=== PATIENT | male | born 2000 | race Caucasian/White ===

== ENCOUNTER 2020-01-09 23:05 | Emergency (ER) | payer OTHER, SELFPAY ==
[2020-01-09 23:04] VITALS: BP 111/62; PULSE 73; RESP 17; TEMP 37; O2SAT 97
--- NOTE | 2020-01-09 23:10 | ED.AMS ---
HPI - Altered Mental Status General Chief Complaint: Altered Mental Status Stated Complaint: poss adverse effect History of Present Illness HPI narrative: Shortly after smoking marijuana this evening he began acting strangely. He became violent with his friends. He was then witnessed running his head into the wall. He vomited once. On arrival here he is somnolent. He claims not to remember what happened. He has no complaints at this time. Review of Systems Review of Systems: All systems reviewed & are unremarkable except as noted in HPI and below Cardiovascular: Cardiovascular: Denies chest pain Respiratory: Respiratory: Denies dyspnea Gastrointestinal: Gastrointestinal: Denies abdominal pain Neurologic: Denies headache(s) [facility] Family History Family History Grandparent Family history of glaucoma Hypertension Family history of elevated blood lipids Cerebrovascular accident Family history of cardiac disorder Family history of malignant neoplasm Family history of coronary artery disease Father Family history of malignant neoplasm Social History Social History Smoking status: Never smoker Alcohol intake: never Exam Const: General: healthy appearing, no acute distress and alert Orientation/consciousness: patient oriented x3 HENMT: Other: minimal dried blood in nares Eyes: Conjunctivae: conjunctivae normal Pupils: Equal, round and reactive pupils present EOM: EOMs intact bilaterally Neck: Neck: normal visual inspection Resp: Effort & Inspection: normal respiratory effort Auscultation: clear to auscultation bilaterally Cardio: Rate: regular rate Rhythm: regular rhythm GI: GI Palp: Yes Soft to palpation and No Tenderness to palpation present (GI) Skin: General skin exam: normal color Wounds: no wounds Neuro: General: patient oriented x3, moves all extremities, no focal motor deficits and CN's II-XI intact bilaterally Cranial nerves: Yes Nystagmus not present Speech: normal speech Extrem: General: normal to inspection Course Vital Signs Vital signs: Vital Signs Temperature 37.0 C 01/09/20 23:04 Pulse Rate 73 01/09/20 23:04 Respiratory Rate 17 01/09/20 23:04 Blood Pressure 111/62 01/09/20 23:04 Pulse Oximetry 97 01/09/20 23:04 Temperature 37.0 C 01/09/20 23:04 Pulse Rate 80 01/10/20 02:04 Respiratory Rate 19 01/10/20 02:04 Blood Pressure 112/46 L 01/10/20 02:04 Pulse Oximetry 98 01/10/20 02:04 MDM - Altered Mental Status MDM Narrative Medical decision making narrative: He has returned to baseline. Likely either had a bad reaction to marijuana or it was laced with soething that does not show up on drug screen. Medical Records Attestation: I reviewed the patient's medical records. Lab Data Attestation: I reviewed the patient's lab results. Labs: Lab Results 01/09/20 Range/Units 23:55 Urine Opiates Screen Negative (Negative) Urine Methadone Screen Negative (Negative) Ur Barbiturates Screen Negative (Negative) Ur Phencyclidine Scrn Negative (Negative) Ur Amphetamine Screen Negative (Negative) U Benzodiazepines Scrn Negative (Negative) Urine Cocaine Screen Negative (Negative) U Cannabinoids Screen Positive A (Negative) Discharge Plan Discharge Clinical Impression: Adverse reaction to psychostimulant drug Qualifiers: Encounter type: initial encounter Qualified Code(s): T43.605A - Adverse effect of unspecified psychostimulants, initial encounter Patient Disposition: Home, Self-Care Condition: Stable Instructions: Adverse Drug Reaction (ED) Follow-up/Referrals: Hudson Norman MD [Primary Care Provider] - Discharge Date/Time: 01/10/20 02:00
--- NOTE | 2020-01-09 23:30 | ECG_ITS ---
Measurements Intervals [place] Rate: 69 P: 59 TN: 151 QRS: 49 QRSD: 99 T: 43 QT: 388 QTc: 416 Interpretive Statements SINUS RHYTHM VOLTAGE CRITERIA FOR LVH MINIMAL Q WAVES- INFERIOR LEADS BORDERLINE ECG Electronically Signed On 01-10-2020 7:08:52 CDT by Wilian Ward D.O.
[2020-01-10] VITALS: BP 98/54; PULSE 56; RESP 12; O2SAT 97
[2020-01-10 00:17] LABS: Amphetamine Screen Urine Negative (Negative); Barbiturate Screen Urine Negative (Negative); Benzodiazepines Screen Urine Negative (Negative); Cannabinoid Screen Urine Positive (Negative); Cocaine Screen Urine Negative (Negative); Methadone Screen Urine Negative (Negative); Opiate Screen Urine Negative (Negative); Phencyclidine Screen Urine Negative (Negative)
[2020-01-10 01:10] VITALS: BP 92/43; PULSE 55; RESP 14; O2SAT 99
[2020-01-10 02:04] VITALS: BP 112/46; PULSE 80; RESP 19; O2SAT 98
== END 2020-01-10 02:00 | disposition home or self-care (01) ==
PROVIDERS: Emergency Provider Emergency Medicine; PCP Family Medicine
DX: R41.82 Altered mental status, unspecified (principal); T43.605A Adverse effect of unspecified psychostimulants, initial encounter
CPT/HCPCS: 51702; 80307; 93005; 99283

== ENCOUNTER 2020-09-08 12:15 | Emergency (ER) | payer OTHER, SELFPAY ==
--- NOTE | ~2020-09-08 | XR_ITS ---
EXAMINATION: XR foot RT min 3V EXAM DATE: 09/08/2020 12:33 INDICATION: Initial encounter following injury, with pain of the right foot. TECHNIQUE: Right foot dorsoplantar, lateral and oblique projections obtained and reviewed. There is no prior study for comparison. FINDINGS: There is acute closed posttraumatic nondisplaced fracture through the base of the right 5t h metatarsal fracture. No displacement. There is overlying soft tissue swelling. No other suspicious findings. IMPRESSION: Right 5th metatarsal base nondisplaced avulsion fracture. Reviewed, dictated and finalized at location A.
--- NOTE | 2020-09-08 12:30 | ED.LOWEXIN ---
HPI - Extremity Injury (Lower) General Chief Complaint: Extremity Injury, Lower Stated Complaint: rt foot injury Source: patient Mode of arrival: ambulatory Limitations: no limitations History of Present Illness HPI Narrative: Patient is a 19 year old male who presents complaining of right foot pain. He reports he was running two days ago when he stepped on a bottle and heard a pop . He reports mild bruising and tenderness with ambulation. He denies other injuries. He denies significant medical history. Patient denies using over the counter medications for pain. MD complaint: foot injury Related Data Allergies Allergy/AdvReac Type Severity Reaction Status Date / Time No Known Allergies Allergy Verified 01/13/20 10:36 Review of Systems Review of Systems: Narrative: CONSTITUTIONAL: Denies fever, chills, or sweats. EYES: Denies visual changes, redness, or discharge. ENT: Denies rhinorrhea, congestion, sore throat, or otalgia. CARDIOVASCULAR: Denies chest pain, palpitations, or edema. RESPIRATORY: Denies cough or dyspnea. GASTROINTESTINAL: Denies abdominal pain, nausea, vomiting, or diarrhea. GENITOURINARY: Denies dysuria or hematuria. SKIN: Denies rash or itching. MUSCULOSKELETAL: Rectal pain NEUROLOGIC: Denies headache, numbness, dizziness, or weakness. PSYCHIATRIC: Denies anxiety or depression. [facility] Family History Family History Grandparent Family history of glaucoma Hypertension Family history of elevated blood lipids Cerebrovascular accident Family history of cardiac disorder Family history of malignant neoplasm Family history of coronary artery disease Father Family history of malignant neoplasm Social History Social History Smoking status: Never smoker Alcohol intake: never Comments At the time of signature, I have reviewed and agree with nursing past medical, surgical, social, and family history unless otherwise noted. Please see nursing chart for further information. There is no relevant family history pertinent to the presenting complaint. Exam Narrative: Exam Narrative: GENERAL: Well-appearing, well-nourished, and in no acute distress. HEAD: Normocephalic, atraumatic. EYES: EOMI. No redness or drainage. Conjunctiva are normal. ENT: Mucous membranes pink and moist. CHEST: No respiratory distress. HEART: Regular rate and rhythm. EXTREMITIES: Ecchymosis and edema to the right lateral foot, tenderness with palpation SKIN: Warm, dry, no rash. NEURO: No focal deficits. Alert and oriented x3. Gait steady. PSYCH: Normal affect. No signs of depression or anxiety. Procedures Orthopedic Splinting/Casting Injury #1: Splinting/Casting Date: 09/08/20 Splinting/Casting Time: 13:00 Lower Extremity Injury Location: foot Lower Extremity Immobilizer: posterior splint Pre-Procedure Neuro Vascular Exam: normal Post-Procedure Neuro Vascular Exam: normal Other Orthopedic Equipment: crutches MDM - Extremity Injury (Lower) MDM Narrative Medical decision making narrative: Patient has a fracture to the base of the right fifth metatarsal, splint applied. Patient to follow-up with Dr. Pro as directed. Patient is stable for discharge home with outpatient follow-up as discussed. Differential Diagnosis Differential diagnosis: Likely ankle sprain and strain, puncture wound of foot, fracture of toe, ankle fracture and other (Fracture foot) Imaging Data Radiologist's impression: ITS Impressions Foot X-Ray 09/08/20 12:36 IMPRESSION: Right 5th metatarsal base nondisplaced avulsion fracture. Critical Care Time Critical Care Time Critical Care Time: No Discharge Plan Discharge Clinical Impression: Fracture of foot Qualifiers: Encounter type: initial encounter Fracture type: closed Laterality: right Qualified Code(s): S92.901A - Unspeci
[2020-09-08 12:35] VITALS: BP 132/68; PULSE 78; RESP 16; TEMP 37.1; O2SAT 99
== END 2020-09-08 13:15 | disposition home or self-care (01) ==
PROVIDERS: Emergency Provider Nurse Practitioner; PCP Family Medicine
DX: S92.351A Displaced fracture of fifth metatarsal bone, right foot, initial encounter for closed fracture (principal); W22.8XXA Striking against or struck by other objects, initial encounter
CPT/HCPCS: 29515; 73630; 99214; G0463

== ENCOUNTER 2022-06-14 11:51 | Emergency (ER) | payer BC, SELFPAY ==
--- NOTE | ~2022-06-14 | XR_ITS ---
Lumbosacral Spine: AP and lateral views Clinical History: Pain Findings: The normal lordotic curve is maintained. The vertebral bodies and posterior elements are i ntact. The intervertebral disc spaces are preserved. The sacroiliac joints are normally outlined. Impression: No significant abnormality. Reviewed, dictated and finalized at [facility]. CLEANER Impression: No significant abnormality.
[2022-06-14 12:01] VITALS: BP 101/66; PULSE 58; RESP 16; TEMP 37.2; O2SAT 100
[2022-06-14 12:02] VITALS: BP 101/66; PULSE 58; RESP 16; TEMP 37.2; O2SAT 100
--- NOTE | 2022-06-14 12:21 | ED.GENADULT ---
HPI - General Adult General Chief complaint: Back Pain/Injury Stated complaint: tailbone pain Source: patient Mode of arrival: ambulatory Limitations: no limitations History of Present Illness HPI narrative: Patient presents for evaluation of low back pain since yesterday. He was skating for ice hockey and thinks the pain started after turning a particular way. Pain is constant, 6/10 in severity, with intermittent pain that increases to 8/10. Pain does shoot up his back. No radicular component to lower extremities. No paresthesias. No bladder/bowel incontinence. A hot shower did reduce his pain. He tried ibuprofen 600mg which also seemed to help. No hx of back injuries. Related Data Allergies Allergy/AdvReac Type Severity Reaction Status Date / Time No Known Allergies Allergy Verified 06/14/22 12:01 Review of Systems Review of Systems: CONSTITUTIONAL: Denies fever, chills, or sweats. EYES: Denies visual changes, redness, or discharge. ENT: Denies rhinorrhea, congestion, sore throat, or otalgia. CARDIOVASCULAR: Denies chest pain, palpitations, or edema. RESPIRATORY: Denies cough or dyspnea. GASTROINTESTINAL: Denies abdominal pain, nausea, vomiting, or diarrhea. GENITOURINARY: Denies dysuria or hematuria. SKIN: Denies rash or itching. MUSCULOSKELETAL: Reports low back pain. Denies joint pain, or myalgia. NEUROLOGIC: Denies headache, numbness, dizziness, or weakness. PSYCHIATRIC: Denies anxiety or depression. 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 Concussion Fracture of 5th metatarsal Hx of concussion Right foot pain Surgical History Surgical History No pertinent past surgical history Family History Family History Grandparent Family history of glaucoma Hypertension Family history of elevated blood lipids Cerebrovascular accident Family history of cardiac disorder Family history of malignant neoplasm Family history of coronary artery disease Father Family history of malignant neoplasm Other Basal cell carcinoma Social History Social History Alcohol intake: current Drinks per week: 5 Gender identity (if verbalized by the patient): Male Spiritual care concerns: No Exam Narrative: GENERAL: Well-appearing, well-nourished, and in no acute distress. HEAD: Normocephalic, atraumatic. EYES: PERRLA and EOMI. ENT: Nares clear, no rhinorrhea or epistaxis. Mucous membranes moist. Oropharynx without tonsillar hypertrophy exudate or other lesions. Bilateral TMs pearly rivas nonbulging NECK: Supple. No adenopathy or masses. No carotid bruits or JVD CHEST: Clear to auscultation. No respiratory distress. No wheezes rales or rhonchi HEART: Regular rate and rhythm. No murmur heard. Normal peripheral pulses. ABDOMEN: Soft, nontender, nondistended, normal active bowel sounds. EXTREMITIES: Normal range of motion. No edema. BACK: No tenderness in midline or paraspinous muscles of lumbar spine. No tenderness over SI joints SKIN: Warm, dry, no rash. NEURO: No focal deficits. Alert and oriented x3. PSYCH: Normal mood and affect. Course Course Emergency Course: This is a 21-year-old male who presented for evaluation of low back pain. X-ray was negative for acute traumatic pathology. Exam is consistent with strain. Continue ibuprofen as needed for pain with food. Add Flexeril. Warm moist heat may help. Follow up with primary care provider and go to ER for worsening symptoms. Pt in agreement with plan of care. Level of Care: Express Care Visit Vital Signs Vital signs: Vital Signs Temperature 37.2 C 06/14/22 12:01 Pulse Rate 58 L 06/14/22 12:01 Respiratory Rate 16 06/14/22 12:01 Blood
== END 2022-06-14 12:56 | disposition home or self-care (01) ==
PROVIDERS: Emergency Provider Nurse Practitioner; PCP Emergency Medicine
DX: S39.012A Strain of muscle, fascia and tendon of lower back, initial encounter (principal); X50.9XXA Other and unspecified overexertion or strenuous movements or postures, initial encounter; Y93.22 Activity, ice hockey
CPT/HCPCS: 72100; 99213; G0463